=== PATIENT | male | born 1955 | race Caucasian/White ===

== ENCOUNTER 2017-02-23 14:09 | Outpatient (CLI) | payer MEDICARE ==
--- NOTE | 2017-02-23 17:08 | RAD ---
2 VIEW LUMBAR SPINE: Date: 02/23/17 COMPARISON: 01/12/17. INDICATION: Disc degeneration. FINDINGS: Postoperative findings of left posterior fusion spanning L4 through S1 are redemonstrated with gross ly stable hardware positioning. No obvious interval hardware complication. Degenerative findings of the lumbar spine are grossly stable, as is the levocurvature centered at the L3 level. Numerous phle boliths overlie the pelvis. IMPRESSION: Stable postoperative lumbar spine. POS: EKTA
== END 2017-02-23 14:10 | disposition home or self-care (01) ==
LOC: TBSIIMAG 14:09
PROVIDERS: ATTEND Neurological Surgery
DX: M51.36 Other intervertebral disc degeneration, lumbar region (principal); Z98.1 Arthrodesis status
CPT/HCPCS: 72100

== ENCOUNTER 2017-08-08 09:57 | Outpatient (CLI) | payer MEDICARE ==
[2017-08-08 11:41] LABS: Hemoglobin 15.3 g/dL (14.0-18.0); Mean Corpuscular HGB CONC 32.7 g/dL (32.0-36.0); Mean Corpuscular Volume 97.7 fl (80.0-94.0); Mean Platelet Volume 7.4 fL (7.4-10.4); Platelet Count 328 thou/uL (130-400); RBC Distribution Width 12.9 % (11.5-14.5); Red Blood Cell (RBC) Count 4.79 mill/uL (4.70-6.10); White Blood Cell (WBC) Count 6.9 thou/uL (4.8-10.8)
[2017-08-08 12:02] LABS: Anion Gap 10 mmol/L (10-20); BUN (Urea Nitrogen) 10 mg/dL (8.4-25.7); Calc. Creatinine Clearance 0 mL/min (70-130); Calcium 9.3 mg/dL (7.8-10.44); Carbon Dioxide 26 mmol/L (22-29); Chloride 105 mmol/L (98-107); Estimated GFR-MDRD 75; Glucose 83 mg/dL (70-105); Potassium 4.4 mmol/L (3.5-5.1); Sodium 137 mmol/L (136-145)
--- NOTE | 2017-08-13 08:44 | EKG ---
Test Reason : Blood Pressure : / mmHG Vent. Rate : 080 BPM Atrial Rate : 080 BPM P-R Int : 150 ms QRS Dur : 104 ms QT Int : 382 ms P-R-T Axes : 072 -08 056 degrees QTc Int : 440 ms Normal sinus rhythm Incomplete right bundle branch block Borderline ECG When compared with ECG of 29-DEC-2016 06:46, Incomplete right bundle branch block is now Present Confirmed by ALISON DUNN, ROBYN ([id number]) on 08/13/2017 8:44:11 AM Referred By: MARLEY Confirmed By:ROBYN ROSAS MD
== END 2017-08-08 09:58 | disposition home or self-care (01) ==
LOC: LABBT 09:57
PROVIDERS: ATTEND Orthopaedic Surgery
DX: Z01.818 Encounter for other preprocedural examination (principal); M75.102 Unspecified rotator cuff tear or rupture of left shoulder, not specified as traumatic
CPT/HCPCS: 80048; 85027; 93005; 93010

== ENCOUNTER 2017-08-10 05:44 | Day surgery (SDC) | payer MEDICARE ==
[2017-08-08 10:39] VITALS: BMI 25.4
[2017-08-10] MEDS ORDERED: CEFAZOLIN/Water 2 GM/20 ML SYRINGE ONE (06:23)
[2017-08-10] MEDS ORDERED: Fentanyl 100 MCG/2 ML VIAL ONE (06:43)
[2017-08-10] MEDS ORDERED: Midazolam HCl 2 mg/2 ml Vial ONE (06:43)
[2017-08-10] MEDS ORDERED: Bupivacaine/Epinephrine 0.25% 30 ML VIAL ONE (07:13)
[2017-08-10] MEDS ORDERED: traMADol HCl 50 MG TAB PO PRN ×2 (07:17)
[2017-08-10] MEDS ORDERED: Promethazine HCl 25 MG/ML VIAL IM PRN (07:17)
[2017-08-10] MEDS ORDERED: Ketorolac Tromethamine 30 MG/ML VIAL IVP PRN (07:17)
[2017-08-10] MEDS ORDERED: Ondansetron HCl/PF 4 MG/2 ML Vial IVP PRN (07:17)
[2017-08-10] MEDS ORDERED: Zolpidem Tartrate 5 MG TAB PO PRN (07:17)
[2017-08-10] MEDS ORDERED: HYDROcodone/Acetaminophen 5/325 mg Tablet PO PRN ×2 (07:17)
[2017-08-10] MEDS ORDERED: Ropivacaine 0.2% 550 ML 550 ML NERVE BLCK SCH (07:17)
[2017-08-10] MEDS ORDERED: Fentanyl 100 MCG/2 ML VIAL IV PRN (07:19)
--- NOTE | 2017-08-10 12:10 | OP ---
DATE OF PROCEDURE: 08/10/2017 PREOPERATIVE DIAGNOSIS: Left full thickness rotator cuff repair. POSTOPERATIVE DIAGNOSIS: Left full thickness rotator cuff repair. PROCEDURE PERFORMED: Left rotator cuff repair, double row transosseous equivalent. STAFF: Dandy Spencer M.D. TANK SETTER: None. ANESTHESIA: Dr. Heard. The patient received general endotracheal intubation. ESTIMATED BLOOD LOSS: 30 mL. TOURNIQUET TIME: None. IMPLANTS: Two Arthrex 2 x2 5.5 corkscrews an Arthrex x2 5.5 locks. ANTIBIOTICS: Ancef 2 grams. COMPLICATIONS: None. HISTORY OF PRESENT ILLNESS: Mr. Shanks is a 61-year-old male who presented to me with left shoulder pain for greater than 8 months. He had injection, had continued pain afterwards. The patient denies numbness or tingling and pain with overhead motion. I discussed with patient the risks and benefits of the left shoulder arthroscopic repair. I discussed smoking cessation would improve his rate of h ealing. I discussed the risks and benefits of surgery to include pain, scar, bleeding, infection, da mage to vital structures, decreased range of motion, strength, continued pain despite surgical interv ention. The patient understood the risks and benefits of procedure and elected to proceed. PROCEDURE IN DETAIL: Timeout was performed designating the patient's left upper extremity as the ope rative site based on site, consents and markings. After completion of timeout, the patient's left up per extremity was prepped and draped in sterile fashion, placed in beach chair position with bony poi nts well padded. I placed a posterior portal and anterior working portal, visualized intraarticularl y, there were some degenerative labral changes. No biceps lesion. I saw the cuff tear intraarticula rly. I saw the subscapularis, which was intact. No defects on the humerus or glenoid. No loose bod ies, no osteophytes. I then moved subacromial, debrided the bursa, exposed the entire cuff. The cuf f had kind of an irregular pattern, it was peeled off of its footprint of the entire supraspinatus, b ut there was a tear within the substance. It was only about a 5 mm, so I debrided that to have a sin gle kind of V or U-shaped cup. I then debrided, took a bur and burred bone and took some the articul ar cartilage to create a bleeding bone surface. I then placed an anchor anterior and posterior withi n that footprint, passed 8 sutures through and tied 4 horizontal mattress sutures. I used a double row transosseous equivalent laterally, passed those in, pulled them tight and cut them and took final pictures showing my repair. I then washed, closed with 3-0 nylon. The patient will be in a sling. Elbow, wrist, and hand motion. The patient will follow up me in 2 w eeks. The patient outlook is guarded.
[2017-08-10] MEDS ORDERED: Ropivacaine 0.2% HCl/PF (40 MG/20 ML VIAL) ONE (16:22)
[2017-08-10] MEDS ORDERED: Ropivacaine 0.5% HCl/PF (150 MG/30 ML VIAL) ONE (16:22)
[2017-08-10] MEDS ORDERED: Glycopyrrolate 0.2 MG/ML 5 ML SYRINGE ONE (16:51)
[2017-08-10] MEDS ORDERED: Ketorolac Tromethamine 30 MG/ML VIAL ONE (16:51)
[2017-08-10] MEDS ORDERED: PROPOFOL 200 MG/20 ML VIAL ONE (16:51)
[2017-08-10] MEDS ORDERED: Dexamethasone 20 MG/5 ML VIAL ONE (16:51)
== END 2017-08-10 12:15 | disposition home or self-care (01) ==
LOC: SDC 05:44
PROVIDERS: ATTEND Orthopaedic Surgery
PROC: 0LQ24ZZ Repair Left Shoulder Tendon, Percutaneous Endoscopic Approach (ICD-10-PCS; principal; 2017-08-10)
DX: M75.112 Incomplete rotator cuff tear or rupture of left shoulder, not specified as traumatic (principal); Z98.890 Other specified postprocedural states
CPT/HCPCS: 29827; A4306; C1713 ×2; J1100; J1885; J2250; J2704; J2795; J3010